=== PATIENT | male | born 1940 ===

== ENCOUNTER 2024-07-12 14:17 | Inpatient (IN) | payer OTHER ==
[~2024-07-12] VITALS: Ht 177.8 cm; Wt 81.6 kg
[~2024-07-12 14:17] MED LIST: DIVALPROEX SOD500 MG PO; LATU40TA PO; LISINOPRIL5 MG PO; METFORMIN500 MG PO; SEPTRA DS 800 M1 TAB PO; VITAMIN D50000 I3 PO
[2024-07-12 14:31] VITALS: BP 128/69
[2024-07-12 15:00] LABS: EOS % 0.2 % (1.0-4.0); HEMATOCRIT 30.5 % (42.0-52.0); MEAN CELL VOLUME 103.4 fl (80.0-94.0); MEAN CORPUSCULAR HGB 34.2 pg (27.0-31.0); MEAN CORPUSCULAR HGB CONC 33.1 g/dl (33.0-37.0); MEAN PLATELET VOLUME 10.1 fl (9.6-12.3); MONO # 0.7 10*3/uL (0.1-1.0); MONO % 12.8 % (3.0-9.0); NEUT # 3.3 10*3/uL (2.3-7.9); NEUT % 60.2 % (47.0-73.0); PLATELET COUNT AUTOMATED 168 10*3/uL (130-400); RED BLOOD COUNT 2.95 10*6/uL (4.50-5.90); RED CELL DISTRI WIDTH 14.2 % (0-14.5); WHITE BLOOD COUNT 5.5 10*3/uL (4.8-10.8)
[2024-07-12 15:21] LABS: ALKALINE PHOSPHATASE 84 U/L (46-116); BUN 22 mg/dl (9-23); CHLORIDE 103 mmol/L (98-107); POTASSIUM 4.2 mmol/L (3.4-5.1); SGPT/ALT 12 U/L (5-49); TOTAL PROTEIN 6.6 gm/dL (6.0-8.0)
[2024-07-12 15:22] LABS: ETHYL ALCOHOL < 3.0 mg/dl (<3)
[2024-07-12 16:08] LABS: BILIRUBIN Negative (Negative); BLOOD Negative (Negative); CLARITY Clear (Clear); COLOR Yellow (Yellow); GLUCOSE Negative (Negative); KETONE Trace (Negative); LEUKO ESTERASE Negative (Negative); NITRITE Negative (Negative); UROBILINOGEN 0.2 E.U./dl (0.0-1.0)
[2024-07-12 16:15] LABS: BACTERIA TRACE; MUCOUS TRACE; URINE AMPHETAMINES Negative (1000ng/ml); URINE BARBITURATES Negative (200ng/ml); URINE BENZODIAZEPINES Negative (200ng/ml); URINE CANNABINOIDS (THC) Negative (50ng/ml); URINE COCAINE Negative (300ng/ml); URINE METHADONE Negative (300ng/ml); URINE OPIATES Positive (300ng/ml); URINE PHENCYCLIDINE Negative (25ng/ml)
[2024-07-12] MEDS ORDERED: AIRSUPRA 90-810.7 GM IH (17:46)
[2024-07-12] MEDS ORDERED: BENZONATATE200 MG PO (17:47)
[2024-07-12] MEDS ORDERED: COLACE100 MG PO (17:48)
[2024-07-12] MEDS ORDERED: IRON325 M3 PO (17:49)
[2024-07-12] MEDS ORDERED: LEVOFLOXACIN500 MG PO (17:52)
[2024-07-12] MEDS ORDERED: LOSARTAN POTASS25 M1 PO (17:52)
[2024-07-12] MEDS ORDERED: THROAT DROPS2.8 MG PO (17:53)
[2024-07-12] MEDS ORDERED: MULTIPLE VITAM1 EAC2 PO (17:55)
[2024-07-12] MEDS ORDERED: SALINE MIST 4444 ML NAS (17:57)
[2024-07-12] MEDS ORDERED: PROTONIX20 MG PO (17:58)
[2024-07-12] MEDS ORDERED: PRESERVISION A1 EAC9 PO (17:58)
[2024-07-12] MEDS ORDERED: VITAMIN D3125 MC1 PO (18:00)
== END 2024-07-12 17:24 | DRG 750 ==
LOC: ED 14:17 → EDHOLD 16:36
PROVIDERS: Nurse Practitioner Family; ADMIT Psychiatry & Neurology Psychiatry; ATTEND Psychiatry & Neurology Psychiatry
DX: F23 Brief psychotic disorder (principal); J18.9 Pneumonia, unspecified organism; F17.210 Nicotine dependence, cigarettes, uncomplicated; I12.9 Hypertensive chronic kidney disease with stage 1 through stage 4 chronic kidney disease, or unspecified chronic kidney disease; E11.22 Type 2 diabetes mellitus with diabetic chronic kidney disease; N18.9 Chronic kidney disease, unspecified; Z20.822 Contact with and (suspected) exposure to COVID-19; Z82.49 Family history of ischemic heart disease and other diseases of the circulatory system; Z83.6 Family history of other diseases of the respiratory system; Z79.899 Other long term (current) drug therapy; Z90.49 Acquired absence of other specified parts of digestive tract; Z83.3 Family history of diabetes mellitus

== ENCOUNTER 2024-07-12 16:47 | Inpatient (IN) | payer OTHER ==
[~2024-07-12] VITALS: Ht 177.8 cm; Wt 81.9 kg
[2024-07-12] MEDS ORDERED: ACETAMINOPHEN 325 MG TAB PO PRN (17:35)
[2024-07-12] MEDS ORDERED: MG-AL HYDROXIDE/SIMETICONE 30 ML UDC PO PRN (17:35)
[2024-07-12] MEDS ORDERED: Magnesium Hydroxide 30 ML UDC PO PRN (17:35)
[2024-07-12] MEDS ORDERED: LORazepam 1 MG TAB PO PRN (17:35)
[2024-07-12] MEDS ORDERED: LORazepam 2 MG/ML VIAL IM PRN (17:35)
[2024-07-12] MEDS ORDERED: Water, Sterile 10 ML VIAL IM PRN (17:40)
[2024-07-12] MEDS ORDERED: Ziprasidone Mesylate 20 MG VIAL IM PRN (17:40)
[2024-07-12 17:44] VITALS: BP 126/94
[2024-07-12] MEDS ORDERED: AIRSUPRA 90-810.7 GM IH (17:46)
[2024-07-12] MEDS ORDERED: BENZONATATE200 MG PO (17:47)
[2024-07-12] MEDS ORDERED: COLACE100 MG PO (17:48)
[2024-07-12] MEDS ORDERED: IRON325 M3 PO (17:49)
[2024-07-12] MEDS ORDERED: LEVOFLOXACIN500 MG PO (17:52)
[2024-07-12] MEDS ORDERED: LOSARTAN POTASS25 M1 PO (17:52)
[2024-07-12] MEDS ORDERED: THROAT DROPS2.8 MG PO (17:53)
[2024-07-12] MEDS ORDERED: MULTIPLE VITAM1 EAC2 PO (17:55)
[2024-07-12] MEDS ORDERED: SALINE MIST 4444 ML NAS (17:57)
[2024-07-12] MEDS ORDERED: PROTONIX20 MG PO (17:58)
[2024-07-12] MEDS ORDERED: PRESERVISION A1 EAC9 PO (17:58)
[2024-07-12] MEDS ORDERED: VITAMIN D3125 MC1 PO (18:00)
[2024-07-12 20:00] VITALS: BP 126/57
[2024-07-12] MEDS ORDERED: RISPERIDONE 0.5 MG TAB PO SCH (21:00)
[2024-07-12] MEDS ORDERED: DIVALPROEX (DR) 250 MG TAB PO SCH (21:00)
[2024-07-12] MEDS ORDERED: Memantine Hydrochloride 10 MG TAB PO SCH (21:00)
[2024-07-13 06:47] LABS: ALKALINE PHOSPHATASE 86 U/L (46-116); BUN 18 mg/dl (9-23); CHLORIDE 102 mmol/L (98-107); CHOLESTEROL 142 mg/dL (<200); LDL CHOLESTEROL 90 mg/dL (9-159); POTASSIUM 4.1 mmol/L (3.4-5.1); SGPT/ALT 8 U/L (5-49); TOTAL PROTEIN 6.6 gm/dL (6.0-8.0); TRIGLYCERIDES 131 mg/dl (<150); VALPROIC ACID (DEPAKENE) 54.3 ug/ml (50-100)
[2024-07-13 06:49] LABS: BASO % 0.2 % (0.0-1.0); HEMATOCRIT 32.7 % (42.0-52.0); MEAN CELL VOLUME 103.5 fl (80.0-94.0); MEAN CORPUSCULAR HGB 34.8 pg (27.0-31.0); MEAN CORPUSCULAR HGB CONC 33.6 g/dl (33.0-37.0); MEAN PLATELET VOLUME 10.2 fl (9.6-12.3); MONO # 0.7 10*3/uL (0.1-1.0); MONO % 10.8 % (3.0-9.0); NEUT # 3.6 10*3/uL (2.3-7.9); NEUT % 55.1 % (47.0-73.0); PLATELET COUNT AUTOMATED 169 10*3/uL (130-400); RED BLOOD COUNT 3.16 10*6/uL (4.50-5.90); RED CELL DISTRI WIDTH 14.3 % (0-14.5); WHITE BLOOD COUNT 6.6 10*3/uL (4.8-10.8)
[2024-07-13 07:17] LABS: VITAMIN D, 25-HYDROXY 76.2 ng/mL (30-100)
[2024-07-13 08:03] VITALS: BP 116/71
[2024-07-13] MEDS ORDERED: RIVASTIGMINE 13.3 MG/24 HR TDM T SCH (09:00)
[2024-07-13] MEDS ORDERED: CIMETIDINE 400 MG TAB PO SCH (09:55)
[2024-07-13] MEDS ORDERED: SODIUM CHLORIDE Nasal 44 ml bottle NAS PRN (09:55)
[2024-07-13] MEDS ORDERED: BENZONATATE 100 MG CAP PO PRN (09:55)
[2024-07-13] MEDS ORDERED: FERROUS SULFATE 325 MG TAB PO SCH (10:00)
[2024-07-13] MEDS ORDERED: Losartan Potassium 25 MG TAB PO SCH (10:00)
[2024-07-13] MEDS ORDERED: CIMETIDINE 200 MG TAB PO SCH (10:00)
[2024-07-13] MEDS ORDERED: Pantoprazole Sodium 20 MG TAB PO SCH (10:00)
[2024-07-13] MEDS ORDERED: LEVOFLOXACIN 750 MG TAB PO SCH (10:00)
[2024-07-13 20:00] VITALS: BP 134/50
[2024-07-14 08:00] VITALS: BP 120/78
[2024-07-14] MEDS ORDERED: FOAM BANDAGE 4X4 T ONE (08:51)
[2024-07-14] MEDS ORDERED: DOCUSATE SODIUM 100 MG CAP PO SCH (09:00)
[2024-07-14 19:52] VITALS: BP 158/65
[2024-07-15 07:44] VITALS: BP 126/56
[2024-07-15 20:00] VITALS: BP 121/58
[2024-07-16 07:46] VITALS: BP 114/75
[2024-07-16 19:14] VITALS: BP 110/70
[2024-07-16] MEDS ORDERED: RAMELTEON 8 MG TAB PO SCH (21:00)
[2024-07-17 08:00] VITALS: BP 125/59
[2024-07-17] MEDS ORDERED: ERGOCALCIFEROL 50,000 IU CAP (1.25 MG) PO SCH (09:00)
[2024-07-17 20:00] VITALS: BP 114/41
[2024-07-17] MEDS ORDERED: DIVALPROEX (DR) 500 MG TAB PO SCH (21:00)
[2024-07-18 08:00] VITALS: BP 118/58
[2024-07-18] MEDS ORDERED: DIVALPROEX (DR) 250 MG TAB PO SCH (09:00)
[2024-07-18 20:00] VITALS: BP 120/60
[2024-07-18] MEDS ORDERED: LITHIUM CARBONATE 450 MG TAB PO SCH (21:00)
[2024-07-19 08:00] VITALS: BP 108/60
[2024-07-19 20:00] VITALS: BP 108/55
[2024-07-19] MEDS ORDERED: RISPERIDONE 1 MG TAB PO SCH (21:00)
[2024-07-20 08:25] VITALS: BP 112/58
[2024-07-20 20:00] VITALS: BP 103/48
[2024-07-21] MEDS ORDERED: IOHEXOL 300 MG/ML 100 ML VIAL IV ONE (11:55)
[2024-07-21 20:00] VITALS: BP 102/53
[2024-07-21] MEDS ORDERED: RISPERIDONE 2 MG TAB PO SCH (21:00)
[2024-07-22 08:00] VITALS: BP 113/49
[2024-07-22 20:00] VITALS: BP 99/54
[2024-07-23 08:00] VITALS: BP 118/50
[2024-07-23] MEDS ORDERED: RISPERIDONE 0.25 MG TAB PO SCH (14:20)
[2024-07-23 20:00] VITALS: BP 114/65
[2024-07-24 07:55] VITALS: BP 116/50
[2024-07-24 19:13] VITALS: BP 96/45
[2024-07-24] MEDS ORDERED: Mirtazapine 15 MG TAB PO SCH (21:00)
[2024-07-25] MEDS ORDERED: SODIUM CHLORIDE 0.9% 1,000 ML IV SCH (09:20)
[2024-07-25 20:00] VITALS: BP 155/45
[2024-07-26 08:00] VITALS: BP 139/61
[2024-07-26] MEDS ORDERED: LITHIUM CARB300 MG PO (10:20)
[2024-07-26] MEDS ORDERED: DIVALPROEX SOD500 MG PO (10:20)
[2024-07-26] MEDS ORDERED: MEMANTINE HCL10 MG PO (10:20)
[2024-07-26] MEDS ORDERED: RIVASTIGMINE1 EAC2 T (10:20)
[2024-07-26] MEDS ORDERED: DIVALPROEX SOD250 MG PO (10:20)
[2024-07-26] MEDS ORDERED: MIRTAZAPINE15 M2 PO (10:20)
[2024-07-26] MEDS ORDERED: RISPERIDONE2 M2 PO (10:20)
[2024-07-26] MEDS ORDERED: RISPERIDONE0.25 M2 PO (10:20)
[2024-07-26] MEDS ORDERED: LITHIUM CARBONATE 300 MG TAB PO SCH (21:00)
== END 2024-07-26 14:00 | DRG 883 ==
LOC: 3N 16:47
PROVIDERS: ADMIT Psychiatry & Neurology Psychiatry; ATTEND Psychiatry & Neurology Psychiatry
PROC: GZHZZZZ Group Psychotherapy (ICD-10-PCS; 2024-07-16)
PROC: GZ51ZZZ Individual Psychotherapy, Behavioral (ICD-10-PCS; 2024-07-16)
PROC: 0HBRXZZ Excision of Toe Nail, External Approach (ICD-10-PCS; principal; 2024-07-21)
PROC: 0HBRXZZ Excision of Toe Nail, External Approach (ICD-10-PCS; 2024-07-21)
PROC: 0HBRXZZ Excision of Toe Nail, External Approach (ICD-10-PCS; 2024-07-21)
PROC: 0HBRXZZ Excision of Toe Nail, External Approach (ICD-10-PCS; 2024-07-21)
PROC: 0HBRXZZ Excision of Toe Nail, External Approach (ICD-10-PCS; 2024-07-21)
PROC: 0HBRXZZ Excision of Toe Nail, External Approach (ICD-10-PCS; 2024-07-21)
PROC: 0HBRXZZ Excision of Toe Nail, External Approach (ICD-10-PCS; 2024-07-21)
PROC: 0HBRXZZ Excision of Toe Nail, External Approach (ICD-10-PCS; 2024-07-21)
PROC: 0HBRXZZ Excision of Toe Nail, External Approach (ICD-10-PCS; 2024-07-21)
PROC: 0HBRXZZ Excision of Toe Nail, External Approach (ICD-10-PCS; 2024-07-21)
DX: F63.81 Intermittent explosive disorder (principal); N18.31 Chronic kidney disease, stage 3a; E11.65 Type 2 diabetes mellitus with hyperglycemia; J18.9 Pneumonia, unspecified organism; F23 Brief psychotic disorder; E87.1 Hypo-osmolality and hyponatremia; F63.9 Impulse disorder, unspecified; G30.9 Alzheimer's disease, unspecified; F02.80 Dementia in other diseases classified elsewhere, unspecified severity, without behavioral disturbance, psychotic disturbance, mood disturbance, and anxiety; D53.9 Nutritional anemia, unspecified; F17.210 Nicotine dependence, cigarettes, uncomplicated; E55.9 Vitamin D deficiency, unspecified; I12.9 Hypertensive chronic kidney disease with stage 1 through stage 4 chronic kidney disease, or unspecified chronic kidney disease; E11.22 Type 2 diabetes mellitus with diabetic chronic kidney disease; B35.1 Tinea unguium; Z90.49 Acquired absence of other specified parts of digestive tract; Z82.49 Family history of ischemic heart disease and other diseases of the circulatory system; Z83.6 Family history of other diseases of the respiratory system